=== PATIENT | female | born 1970 ===

== ENCOUNTER 2018-10-03 19:20 | Emergency (ER) | payer SELFPAY ==
[2018-10-03 19:33] VITALS: BMI 46.3
[2018-10-03 19:35] VITALS: TEMP 98.5
--- NOTE | 2018-10-03 20:02 | ED PDOC ---
Arrival/HPI - General Chief Complaint: Headache Time Seen by Provider: 10/03/18 19:21 Past Medical History - Cardiac Hx Cardiac Disorders: Yes Hx Hypertension: Yes - Pulmonary Hx Respiratory Disorders: No - Neurological Hx Neurological Disorder: No - HEENT Hx HEENT Disorder: No - Renal Hx Renal Disorder: No - Endocrine/Metabolic Hx Endocrine Disorders: No - Hematological/Oncological Hx Blood Disorders: No - Integumentary Hx Dermatological Disorder: No - Musculoskeletal/Rheumatological Hx Musculoskeletal Disorders: No - Gastrointestinal Hx Gastrointestinal Disorders: No - Genitourinary/Gynecological Hx Genitourinary Disorders: No - Psychiatric Hx Psychophysiologic Disorder: No Hx Substance Use: No Family/Social History Smoking Status: Never Smoked Hx Alcohol Use: No Hx Substance Use: No Allergies/Home Meds Allergies/Adverse Reactions: Allergies No Known Allergies Allergy (Verified 10/03/18 19:33) Home Medications: Home Meds Medication Instructions Recorded Confirmed Losartan/Hydrochlorothiazide 1 tab PO DAILY 10/03/18 10/03/18 [Losartan-Hctz 100-25 mg Tab] Physical Exam - Physical Exam Narrative Physical Exam (Text): 10/03/18 19:21 Gen: VS reviewed, alert, well developed, well nourished, nontoxic, mild distress. ENT: normal pharynx. Eye: EOMI, PERRL. Neck: no JVD, supple, no adenopathy. CV: regular rate, regular rhythm, no rubs, no murmur, no gallops, S1, S2, pulses equal and strong. Pulm: no distress, clear to auscultation, no wheeze, no rhonchi, breath sounds equal, no rales. Abd: soft, nontender, no guarding, no rebound, no rigidity, normal bowel sounds. Ext: no edema. Skin: good color, no rash, no cyanosis. Psych: responds appropriately to questions, normal affect. Neuro: oriented x 3, CN2-12 intact grossly, motor intact, sensation intact. Vital Signs Reviewed: Yes Vital Signs Temp Pulse Resp BP Pulse Ox 10/03/18 19:34 98.5 F 93 H 18 146/82 98 Temperature: Afebrile Blood Pressure: Normal Pulse: Regular Respiratory Rate: Normal Appearance: Positive for: Well-Appearing, Non-Toxic, Comfortable Pain Distress: None Mental Status: Positive for: Alert and Oriented X 3 Disposition/Present on Arrival - Present on Arrival History of DVT/PE: No History of Uncontrolled Diabetes: No Urinary Catheter: No History of Decub. Ulcer: No History Surgical Site Infection Following: None - Disposition
--- NOTE | 2018-10-03 20:02 | ED PDOC ---
Arrival/HPI - General Chief Complaint: Headache Time Seen by Provider: 10/03/18 19:21 - History of Present Illness Narrative History of Present Illness (Text): 10/03/18 19:58 48 f with hx htn presents to the ED for evaluation of headache and high blood pr essure. Patient states that earlier in the day at work, she checked her blood pressure with a forearm cuff and was resulted at "180/125". Patient states that she usually gets nervous when dealing with her blood pressure and has an overall elevated level of stress. Patient states she had a dull left sided throbbing headache over her left eye, onset earlier in the day, no photphobia, no associated fever, no neck stiffness, no visual disturbance, improved with aspirin. Patient states that the headache is almost resolved at this time. Patient also reports that when she was more nervous earlier today she felt an usually sensation in the left arm but no chest discomfort or other cardiopulmonary symptoms. Time/Duration: 24 hours Symptom Course: Resolved Activities at Onset: Light Context: Work Past Medical History - Provider Review Nursing Documentation Reviewed: Yes - Cardiac Hx Cardiac Disorders: Yes Hx Hypertension: Yes - Pulmonary Hx Respiratory Disorders: No - Neurological Hx Neurological Disorder: No - HEENT Hx HEENT Disorder: No - Renal Hx Renal Disorder: No - Endocrine/Metabolic Hx Endocrine Disorders: No - Hematological/Oncological Hx Blood Disorders: No - Integumentary Hx Dermatological Disorder: No - Musculoskeletal/Rheumatological Hx Musculoskeletal Disorders: No - Gastrointestinal Hx Gastrointestinal Disorders: No - Genitourinary/Gynecological Hx Genitourinary Disorders: No - Psychiatric Hx Psychophysiologic Disorder: No Hx Substance Use: No Family/Social History - Physician Review Nursing Documentation Reviewed: Yes Family/Social History: No Known Family HX Smoking Status: Never Smoked Hx Alcohol Use: No Hx Substance Use: No Allergies/Home Meds Allergies/Adverse Reactions: Allergies No Known Allergies Allergy (Verified 10/03/18 19:33) Home Medications: Home Meds Medication Instructions Recorded Confirmed Losartan/Hydrochlorothiazide 1 tab PO DAILY 10/03/18 10/03/18 [Losartan-Hctz 100-25 mg Tab] Review of Systems - Physician Review All systems were reviewed & negative as marked: Yes - Review of Systems Constitutional: absent: Fevers Eyes: absent: Vision Changes, Photophobia Cardiovascular: Other (hypertension) Musculoskeletal: absent: Other (Neck Stiffness) Neurological: Headache, Dizziness Psychiatric: Anxiety Physical Exam - Physical Exam Narrative Physical Exam (Text): 10/03/18 19:21 Gen: VS reviewed, alert, well developed, well nourished, nontoxic, mild distress. ENT: normal pharynx. Eye: EOMI, PERRL. Neck: no JVD, supple, no adenopathy. CV: regular rate, regular rhythm, no rubs, no murmur, no gallops, S1, S2, pulses equal and strong. Pulm: no distress, clear to auscultation, no wheeze, no rhonchi, breath sounds equal, no rales. Abd: soft, nontender, no guarding, no rebound, no rigidity, normal bowel sounds. Ext: no edema. Skin: good color, no rash, no cyanosis. Psych: responds appropriately to questions, normal affect. Neuro: oriented x 3, CN2-12 intact grossly, motor intact, sensation intact. Vital Signs Reviewed: Yes Vital Signs Temp Pulse Resp BP Pulse Ox 10/03/18 19:34 98.5 F 93 H 18 146/82 98 Temperature: Afebrile Blood Pressure: Normal Pulse: Regular Respiratory Rate: Normal Appearance: Positive for: Well-Appearing, Non-Toxic, Comfortable Pain Distress: None Mental Status: Positive for: Alert and Oriented X 3 Medical Decision Making ED Course and Treatment: 10/03/18 20:02 patient seen for typical headache for migraine type. elevated blood pressure at work but now at a stable level. Patient has an upcoming appointment with her pcp for routine visit. No apparent neurologic emergency at this time. Will get baseline EKG for atypical left arm sensation. - EKG Interpretation EKG Interpretation (Text): 10/03/18 20:25 2021: ekg my read: nsr at 74 bpm, rbbb, no ectopy, no acute sttw abn Interpreted by ED Physician: Yes - Scribe Statement The provider has reviewed the documentation as recorded by the Scribtolu Harden All medical record entries made by the Scribe were at my direction and personally dictated by me. I have reviewed the chart and agree that the record accurately reflects my personal performance of the history, physical exam, medi norman decision making, and the department course for this patient. I have also personally directed, reviewed, and agree with the discharge instructions and disposition. Disposition/Present on Arrival - Present on Arrival Any Indicators Present on Arrival: No History of DVT/PE: No History of Uncontrolled Diabetes: No Urinary Catheter: No History of Decub. Ulcer: No History Surgical Site Infection Following: None - Disposition Have Diagnosis and Disposition been Completed?: Yes Diagnosis: Migraine headache, Hypertension Disposition: HOME/ ROUTINE Disposition Time: 20:26 Patient Plan: Discharge Condition: STABLE Discharge Instructions (ExitCare): Migraine Headaches in Adults Additional Instructions: return for any new or worsening symptoms. follow up with your doctor for further evaluation of your blood pressure. Forms: [employer] (Greenlandic)
[2018-10-03 20:50] VITALS: BP 129/88; PULSE 80; RESP 16; O2SAT 100
--- NOTE | 2018-10-04 09:19 | CARD ---
APPROVED REPORT Date of service: 10/03/2018 EKG Measurement Heart [id number] [place] 164P29 [id number] <Conclusion> Normal sinus rhythm Right bundle branch block Moderate voltage criteria for LVH, may be normal variant Abnormal ECG
== END 2018-10-03 20:30 | disposition home or self-care (01) ==
LOC: ED 19:20
DX: G43.909 Migraine, unspecified, not intractable, without status migrainosus (principal); I10 Essential (primary) hypertension

== ENCOUNTER 2018-12-05 06:33 | Emergency (ER) | payer BC, OTHER ==
[2018-12-05 06:33] VITALS: BMI 46.3
[2018-12-05 06:53] VITALS: RESP 18; TEMP 98
[2018-12-05] MEDS ORDERED: Lidocaine 5% Patch TD STA (07:26)
--- NOTE | 2018-12-05 07:31 | ED PDOC ---
Arrival/HPI - General Chief Complaint: Upper Extremity Problem/Injury Time Seen by Provider: 12/05/18 07:07 Historian: Patient - History of Present Illness Narrative History of Present Illness (Text): 12/05/18 07:27 48 f with hx htn presents to the ED with chief complaint of acute and severe localized left shoulder pain since last night. Patient denies any hx of similar complaints, no trauma, no obvious event to trigger pain, pain is clearly exacerbated with movement, no radiation of pain down left arm, pain does not stem from the neck, no weakness of the left arm, no numbness of the left arm. Patient has extremely limited ROM second to the pain. Time/Duration: 24 hours Symptom Onset: Sudden Symptom Course: Unchanged Past Medical History - Provider Review Nursing Documentation Reviewed: Yes - Cardiac Hx Cardiac Disorders: Yes Hx Hypertension: Yes - Pulmonary Hx Respiratory Disorders: No - Neurological Hx Neurological Disorder: No - HEENT Hx HEENT Disorder: No - Renal Hx Renal Disorder: No - Endocrine/Metabolic Hx Endocrine Disorders: No - Hematological/Oncological Hx Blood Disorders: No - Integumentary Hx Dermatological Disorder: No - Musculoskeletal/Rheumatological Hx Musculoskeletal Disorders: No - Gastrointestinal Hx Gastrointestinal Disorders: No - Genitourinary/Gynecological Hx Genitourinary Disorders: No - Psychiatric Hx Psychophysiologic Disorder: No Hx Substance Use: No - Surgical History Hx Cholecystectomy: Yes Hx Tonsillectomy: Yes Other/Comment: R breast cyst removal Family/Social History - Physician Review Nursing Documentation Reviewed: Yes Family/Social History: Unknown Family HX Smoking Status: Never Smoked Hx Alcohol Use: No Hx Substance Use: No Allergies/Home Meds Allergies/Adverse Reactions: Allergies No Known Allergies Allergy (Verified 10/03/18 19:33) Home Medications: Home Meds Medication Instructions Recorded Confirmed Losartan/Hydrochlorothiazide 1 tab PO DAILY 10/03/18 12/05/18 [Losartan-Hctz 100-25 mg Tab] [id number] Ethyl Esters [OMEGA 3] 500 mg PO DAILY 12/05/18 12/05/18 Review of Systems - Physician Review All systems were reviewed & negative as marked: Yes - Review of Systems Constitutional: absent: Fevers ENT: absent: Sore Throat, Rhinorrhea Respiratory: absent: SOB, Cough Cardiovascular: absent: Chest Pain, Palpitations, Edema, Syncope Gastrointestinal: absent: Abdominal Pain, Diarrhea, Nausea, Vomiting Genitourinary Female: absent: Dysuria Musculoskeletal: Arthralgias (left shoulder). absent: Neck Pain, Joint Swelling Skin: absent: Rash, Cellulitis Neurological: absent: Headache, Dizziness Physical Exam - Physical Exam Narrative Physical Exam (Text): 12/05/18 07:29 Gen: VS reviewed, alert, well developed, well nourished, nontoxic, mild distress Neck: no JVD, supple, no adenopathy CV: regular rate, regular rhythm, no rubs,no murmur, S1, S2 Pulm: no distress, clear to auscultation, no wheeze, no rhonchi, breath sounds equal, no rales Ext: no edema, there is significant restriction in ROM of the left arm in all direction second to pain, there is point tenderness of the left shoulder at the acromion, there is no scapular/humerus/elbow/clavicle/deltoid muscle tenderness. Skin: good color, no rash, no cyanosis Psych: responds appropriately to questions, normal affect Neuro: oriented x3, CN2-12 intact grossly, motor intact, sensation intact Vital Signs Temp Pulse Resp BP Pulse Ox 12/05/18 06:49 98.0 F 88 18 137/83 98 Medical Decision Making ED Course and Treatment: 12/05/18 07:31 Impression: 48 f with hx htn presents to the ED with chief complaint of acute and severe localized left shoulder pain since last night Differential Diagnosis included but are not limited to: - unlikely fracture, possible rotator cuff injury, bursitis Plan: -- Toradol -- Lidoderm -- X- Ray Left Shoulder -- POC Urine Test -- Arm Sling -- Reassess and disposition Prior Visits: Notes and results from previous visits were reviewed. Progress Notes: 12/05/18 08:22 localized left shoulder pain, xr shows calcific tendonitis, nsaids, sling, refer to ortho - RAD Interpretation Narrative RAD Interpretations (Text): 12/05/18 08:20 xr my read: calcific tendonitis Radiology Orders: 12/05/18 07:24 SHOULDER LEFT [RAD] Stat Pipeline Integrity Engineer: ED Physician - Medication Orders Current Medication Orders: Ketorolac Tromethamine (Toradol) 60 mg IM STAT STA Stop: 12/05/18 07:27 Lidocaine (Lidoderm) 1 ea TD DAILY STA Stop: 12/05/18 07:27 - Scribe Statement The provider has reviewed the documentation as recorded by the Flaco Nicole All medical record entries made by the Scribe were at my direction and personally dictated by me. I have reviewed the chart and agree that the record accurately reflects my personal performance of the history, physical exam, medical decision making, and the department course for this patient. I have also personally directed, reviewed, and agree with the discharge instructions and disposition. Disposition/Present on Arrival - Present on Arrival Any Indicators Present on Arrival: No History of DVT/PE: No History of Uncontrolled Diabetes: No Urinary Catheter: No History of Decub. Ulcer: No History Surgical Site Infection Following: None - Disposition Have Diagnosis and Disposition been Completed?: Yes Diagnosis: Calcific tendonitis of left shoulder Disposition: HOME/ ROUTINE Disposition Time: 08:20 Patient Plan: Discharge Patient Problems: Current Active Problems Problem Status Onset Calcific tendonitis of left shoulder Acute Condition: STABLE Discharge Instructions (ExitCare): Calcific Tendonitis of the Shoulder (DC), How to Use a Shoulder Sling Additional Instructions: you must follow up with the orthopedic surgeon. Prescriptions: Ibuprofen [Motrin Tab] 600 mg PO QID #42 tab oxyCODONE/Acetaminophen [Percocet 5/325 mg Tab] 1 ea PO QID #12 tab Sennosides/Docusate Sodium [Colace 2-in-1 Tablet] 2 each PO BID 7 Days #14 tablet Referrals: Jason Rodriguez DO [Staff Provider] - Follow up with primary Forms: [facility] (B[place]ian), WORK NOTE
[2018-12-05 08:00] VITALS: BP 132/71; PULSE 78; O2SAT 100
--- NOTE | 2018-12-05 12:37 | RAD ---
Date of service: 12/05/2018 PROCEDURE: Radiographs of the Left Shoulder HISTORY: Left upper extremity Pain. No history of recent/ related trauma provided. COMPARISON: No prior. TECHNIQUE: 3 views obtained. FINDINGS: BONES: Normal. No fracture. JOINTS: Normal. Glenohumeral and acromioclavicular joints preserved. No osteoarthritis. SOFT TISSUES: Evidence of calcific tendinosis. OTHER FINDINGS: None. IMPRESSION: No acute findings related to/ accounting for the clinical presentation.
--- NOTE | 2018-12-05 17:16 | CARD ---
APPROVED REPORT Date of service: 12/05/2018 EKG Measurement Heart [id number] 164P37 [id number] <Conclusion> Sinus rhythm with occasional premature ventricular complexes Possible Left atrial enlargement Right bundle branch block Left ventricular hypertrophy Abnormal ECG
== END 2018-12-05 08:30 | disposition home or self-care (01) ==
LOC: ED 06:33
DX: M75.32 Calcific tendinitis of left shoulder (principal); I10 Essential (primary) hypertension
CPT/HCPCS: 29240; 73030; 81025; 93005; 96372; 99285; J1885